=== PATIENT | male | born 1975 | race Caucasian/White ===

== ENCOUNTER 2016-05-13 22:46 | Inpatient (IN) | payer OTHER ==
[~2016-05-13] VITALS: Ht 157.5 cm; Wt 69.8 kg
[2016-05-13 23:10] VITALS: Ht 157.5 cm; Wt 69.8 kg
[2016-05-14] MEDS ORDERED: CARB400T PO (00:47)
[2016-05-14] MEDS ORDERED: LORAZEPAM 2 MG INJ IV PRN (01:00)
[2016-05-14] MEDS ORDERED: DOCUSATE SODIUM 100 MG CAP PO PRN (01:00)
[2016-05-14] MEDS ORDERED: ACETAMINOPHEN 325 MG TAB PO PRN (01:00)
[2016-05-14] MEDS: SOD CHLORIDE 0.9% 1,000 ML IV SCH (02:05)
[2016-05-14] MEDS: PANTOPRAZOLE 40 MG INJ IV SCH (05:32)
[2016-05-14 05:35] LABS: ADD SCAN DIFF NO
[2016-05-14 06:09] LABS: BASOPHIL # 0.1 10^3/ul (0.0-0.1); BASOPHILS % 0.7 % (0.0-2.0); EOSINOPHILS # 0.1 10^3/ul (0.0-0.5); EOSINOPHILS % 1.3 % (0.0-7.0); HEMATOCRIT 41.9 % (42.0-52.0); LYMPHOCYTES # 2.6 10^3/ul (0.8-2.9); LYMPHOCYTES % 30.4 % (15.0-51.0); MEAN CORPUSCULAR HEMOGLOBIN 29.7 pg (29.0-33.0); MEAN CORPUSCULAR HGB CONC 33.4 g/dl (32.0-37.0); MEAN PLATELET VOLUME 8.9 fl (7.4-10.4); MONOCYTE # 0.7 10^3/ul (0.3-0.9); MONOCYTES % 8.5 % (0.0-11.0); NEUTROPHILS % 58.6 % (39.0-77.0); PLATELET COUNT 343 10^3/UL (140-415); RED BLOOD COUNT 4.71 10^6/ul (4.70-6.10); WHITE BLOOD COUNT 8.5 10^3/ul (4.8-10.8)
[2016-05-14 06:17] LABS: POTASSIUM 4.1 mmol/L (3.5-5.1)
[2016-05-14 06:20] LABS: CREATININE 1.13 mg/dl (0.61-1.24)
[2016-05-14 07:20] VITALS: BP 119/82; RESP 18
[2016-05-14] MEDS: LEVETIRACETAM IV 500 MG in SOD CHLORIDE 0.9% 100 ML IVPB SCH ×2 (09:19→20:31)
[2016-05-14] MEDS: carBAMAZepine (XR) 100 MG TABSR PO SCH ×2 (09:20→20:32)
--- NOTE | 2016-05-14 15:44 | QN ---
Documentation Comment [id number] COSME HALEY MD May 14, 2016 15:44
--- NOTE | 2016-05-14 16:11 | HP ---
DATE OF ADMISSION: 05/13/2016 HISTORY OF PRESENT ILLNESS: Patient Cory Martin was admitted from [facility] when he pres ented here with recurrent seizures. The patient denies any fevers, chills or rigors. Takes his medi cation for seizures for many years. Urine toxicology was negative. The patient's urinalysis is neg ative. Hemoglobin 14.8. The patient's sodium 131, potassium 4.9, BUN 11, creatinine 1.10. Normal known CT of the head noted. EKG shows sinus tachycardia. The patient is going to be admitted for f urther management. PAST MEDICAL HISTORY: Seizure disorder. ALLERGY HISTORY: NEGATIVE. FAMILY HISTORY: Negative. SOCIAL HISTORY: Negative. MEDICATION: Tegretol-XR 400 mg twice a day. REVIEW OF SYSTEMS HEENT: Unremarkable for headache, diplopia, or blurred vision. RESPIRATORY: Unremarkable. CARDIOVASCULAR: Unremarkable. ABDOMEN: Unremarkable. EXTREMITIES: Unremarkable. GENITOURINARY: Unremarkable. MUSCULOSKELETAL: Unremarkable. PHYSICAL EXAMINATION: GENERAL: The patient is awake, alert. VITAL SIGNS: Stable. Pulse 74, blood pressure 119/82. HEAD: Atraumatic, normocephalic. Pupils equal, reactive to light. NECK: Supple. No JVD. LUNGS: Clear. CARDIOVASCULAR: S1, S2 normal. ABDOMEN: Soft, nontender. Bowel sounds present. No palpable mass or hepatosplenomegaly. No guard ing, rebound tenderness. EXTREMITIES: There is no cyanosis, clubbing, or edema. CENTRAL NERVOUS SYSTEM: The patient is awake and alert with no focal deficit. LABORATORY DATA: As mentioned above. IMPRESSION: 1. The patient has seizure disorder. 2. Seizure disorder recurrent. PLAN: At this point is to continue patient currently on Tegretol-XR. The patient is also on Keppra . Neurology consultation from Dr. Keith Hawthorne has been obtained. Orders were done. Dictated By: COSME JOHNSON/NTS Conf#: [id number] DID#: [id number]
[2016-05-14 20:00] VITALS: BP 108/59; PULSE 109; RESP 18
[2016-05-15] MEDS: SOD CHLORIDE 0.9% 1,000 ML IV SCH (02:34)
[2016-05-15] MEDS: PANTOPRAZOLE 40 MG INJ IV SCH (05:13)
--- NOTE | 2016-05-15 06:31 | HKNOTE ---
DATE OF SERVICE: REFERRING PHYSICIAN: Dr. Boss Thank you for asking me to see the patient. HISTORY OF PRESENT ILLNESS: The patient is 41 years old with a past medical history of mental retar dation, seizure disorder. The patient comes here from [facility]. Staff say s the patient had no seizure while he was in the hospital. The patient already on Tegretol 400 twic e a day, and they added for him Keppra IV 500 mg twice a day. PAST MEDICAL HISTORY: As above in the form of mental retardation, seizure disorder. PHYSICAL EXAMINATION: GENERAL: The patient is alert, awake, follows simple commands. CRANIAL NERVES: Cranial nerve II: Pupils equal on both sides, reactive to light. Cranial nerves I II, IV, and : Extraocular muscles. No nystagmus. Cranial nerve V and VII: ____. Cranial nerve VIII: Equal hearing bilaterally. Cranial nerves IX, X: Elevates palate. Cranial nerve XI: Elev ates shoulder 5/5. Cranial nerve XII: With straight tongue. MOTOR: Equal on both sides. Deep tendon reflexes 1+, symmetrical, ____ down. COORDINATION: Ygeiso-ex-ahaf test intact. HEART: Regular rate and rhythm. LUNGS: Equal breath sounds. ABDOMEN: Soft, lax, nondistended, nontender. ASSESSMENT AND PLAN: The patient is 41 years old with a past medical history of seizure disorder. 1. Will continue the patient's Tegretol 400 mg twice a day ____ outpatient for seizure activity. 2. Keep the patient on Keppra 500 mg, will change it from IV to p.o. Again, thank you, Dr. Boss, for asking me to see the patient with you. Dictated By: GRETA SÁNCHEZ/MAHAD Conf#: [id number] DID#: [id number]
[2016-05-15 07:10] VITALS: BP 112/67; RESP 18
[2016-05-15] MEDS: LEVETIRACETAM IV 500 MG in SOD CHLORIDE 0.9% 100 ML IVPB SCH (09:48)
[2016-05-15] MEDS: carBAMAZepine (XR) 100 MG TABSR PO SCH (09:51)
--- NOTE | 2016-05-15 16:38 | PDOCDIS ---
Discharge Instructions CONDITION Patient Condition: Good ACTIVITY: Activity Restrictions: Slowly Increase Activity FOLLOW UP/APPOINTMENTS Appointments see dr lao 1 wk see own pcp 1 wk COSME HALEY MD May 15, 2016 16:38
[2016-05-15] MEDS ORDERED: LEVE-5 PO (16:39)
[2016-05-15] MEDS ORDERED: CRB100TCR PO (16:39)
--- NOTE | 2016-05-15 17:01 | QN ---
Documentation Comment [id number] COSME HALEY MD May 15, 2016 17:00
--- NOTE | 2016-05-15 17:56 | DS ---
DATE OF ADMISSION: 05/13/2016 DATE OF DISCHARGE: 05/15/2016 HOSPITAL COURSE: The patient is a 41-year-old male who was admitted with a diagnosis of seizure dis order. The patient's home medications, patient is on Tegretol (carbamazepine) 400 mg twice a day. The patient also was given Keppra. Seen by Dr. Perez in consultation. The patient is symptom f ree. No more seizures and he was cleared to be discharged home. DISCHARGE DIAGNOSES: 1. Seizure disorder. 2. The patient has mild obesity. PLAN: 1. Healthy diet. 2. Continue Keppra 500 mg b.i.d. and Tegretol 400 mg b.i.d. 3. The patient to follow with Dr. Perez and the patient's own primary care doctor in 1 week. Dictated By: COSME JOHNSON/NTS Conf#: [id number] DID#: [id number]
[2016-05-16] MEDS ORDERED: PANTOPRAZOLE (EC) 40 MG TAB PO SCH (06:00)
== END 2016-05-15 18:17 | disposition home or self-care (01) | DRG 101 ==
LOC: PP2 22:59
PROVIDERS: ADMIT Internal Medicine Nephrology; ATTEND Internal Medicine Nephrology
DX: G40.909 Epilepsy, unspecified, not intractable, without status epilepticus (principal); E66.9 Obesity, unspecified; Z68.28 Body mass index [BMI] 28.0-28.9, adult
CPT/HCPCS: 80048; 85025; C9113; J1953; J7030